=== PATIENT | male | born 1950 | race Asian ===

== ENCOUNTER 2020-07-15 16:08 | Inpatient (IN) | payer MEDICARE, OTHER ==
[~2020-07-15] VITALS: Ht 167.6 cm; Wt 62.6 kg
[2020-07-15] MEDS ORDERED: TAMS-12 PO (18:43)
[2020-07-15] MEDS ORDERED: CARB1TAB21 PO (18:43)
[2020-07-15] MEDS ORDERED: DONE5TAB34 PO (18:43)
[2020-07-15] MEDS ORDERED: MIRT30TA7 PO (18:43)
[2020-07-15] MEDS ORDERED: CLON0.5T4 PO (18:43)
[2020-07-15] MEDS ORDERED: SERT-439 PO (18:43)
[2020-07-15] MEDS ORDERED: CARB1TAB40 PO (18:43)
[2020-07-15] MEDS ORDERED: FLUD0.1T PO (18:43)
[2020-07-15] MEDS ORDERED: GABA-532 PO (18:43)
[2020-07-15 19:42] VITALS: BP 115/76
[2020-07-15] MEDS ORDERED: LORAZEPAM 0.5 MG TABLET PO PRN (20:00)
[2020-07-15] MEDS ORDERED: ACETAMINOPHEN 325 MG TABLET PO PRN (20:00)
[2020-07-15] MEDS ORDERED: BLOOD SUGAR DIAGNOSTIC 1 EACH STRIP IN ONE (20:00)
[2020-07-15] MEDS ORDERED: MAGNESIUM HYDROXIDE 30 ML UDC PO PRN (20:00)
[2020-07-15] MEDS ORDERED: MAG HYDROX/AL HYDROX/SIMETH 30 ML UDC PO PRN (20:00)
[2020-07-15 20:27] VITALS: BP 116/76
--- NOTE | 2020-07-15 21:28 | NUR ---
DR. LOPEZ CALLED UPDATED ON PATIENT STATUS AND CONDITION. SPOKE WITH PATIENT OVER THE PHONE. GIVEN CONTACT INFORMATION FOR PATIENTS DOAGHTER NO NEW ORDERS AT THIS TIME.
--- NOTE | 2020-07-15 21:39 | NUR ---
DARWIN CERVANTES AWAITING CALL BACK TO ASK TO COMPLETE MED REC. Addendum: 07/15/20 at 2257 by JESUS ULRICH RN 2229 CALEB DIAL NP CALLED BACK AND STATES HE WILL ADDRESS MED REC. INFORMED OF PATIENT REQUEST TO HAVE EVENING HOME MEDICATIONS HUMZA STATES THAT IS OK.
[2020-07-15] MEDS: QUETIAPINE FUMARATE 25 MG TABLET PO SCH (23:03)
[2020-07-15] MEDS: MIRTAZAPINE 15 MG TABLET PO SCH (23:03)
[2020-07-15] MEDS: clonazePAM 1 MG TABLET PO SCH (23:04)
[2020-07-15] MEDS: TEMAZEPAM 7.5 MG CAPSULE PO PRN (23:04)
--- NOTE | 2020-07-15 23:04 | NUR ---
STILL AWAITING MED REC TO BE PERFORMED PT REQUESTING SLEEPING PILL. SPOKE WITH PATIENT REGARDING EVENING HOME MEDS. PATIENT INFORMED STILL AWAITING MD TO PERFORM MED REC. PT REQUESTING SLEEPING PILL AND WANTS TO GO TO BED. PT REQUESTING NOT TO BE DISTURBED. INFORMED THAT HOME MEDS WILL THEN CONTINUE IN THE AM AFTER IT GETS ORDERED. PT VERBALIZED UNDERSTANDING. PT STATES, "THATS OK. I JUST AM TIRED."
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
[2020-07-16 06:42] LABS: BASOPHILS % (AUTO) 0.4 % (0.0-2.0); EOSINOPHILS % (AUTO) 0.9 % (0.0-6.0); HEMATOCRIT 41 % (39-51); HEMOGLOBIN 13.7 g/dL (13.5-17.5); LYMPHOCYTES # (AUTO) 1.3 /CMM (0.8-4.8); LYMPHOCYTES % (AUTO) 23.2 % (20.0-44.0); MEAN CORPUSCULAR HGB CONC 33 g/dl (31.0-36.0); MEAN CORPUSCULAR VOLUME 96 fL (80-96); MONOCYTES # (AUTO) 0.4 /CMM (0.1-1.30); MONOCYTES % (AUTO) 7.1 % (2.0-12.0); NEUTROPHILS # (AUTO) 3.9 /CMM (1.8-8.9); NEUTROPHILS % (AUTO) 68.4 % (43.0-81.0); PLATELET COUNT (AUTO) 110 /CMM (150-450); WHITE BLOOD COUNT (AUTO) 5.8 K/uL (4.3-11.0)
[2020-07-16 07:14] LABS: CALCIUM, SERUM 7.8 mg/dL (8.5-10.1); CREATININE 0.8 mg/dL (0.6-1.3); POTASSIUM 3.3 mmol/L (3.5-5.1)
[2020-07-16 08:00] VITALS: BP 152/91
[2020-07-16] MEDS: GABAPENTIN 300 MG CAPSULE PO SCH ×3 (09:57→18:47)
[2020-07-16] MEDS: FLUDROCORTISONE 0.1 MG TABLET PO SCH (09:58)
[2020-07-16] MEDS: CARBIDOPA/LEVODOPA 25/100 MG 1 UDTAB PO SCH ×5 (09:58→18:43)
[2020-07-16] MEDS ORDERED: POTASSIUM CHLORIDE 20 MEQ TAB.PRT.SR PO SCH (10:30)
--- NOTE | 2020-07-16 14:57 | NUR ---
Point of Contact: Patient gave verbal consent for SW to call his oldest daughter, Navdeep [phone] and the daughter he resides with, Melissa [phone]. SW called both daughters to gather collateral information and begin D/C planning. Calls went to voicemail and SW left voicemail message with call back number.
--- NOTE | 2020-07-16 14:58 | NUR ---
Initial Discharge plan: The pt. currently resides at home [[address] [facility] [address]] with his , and daughter, Melissa [phone]. Per pt. he would like to return home with family once ready for discharge. SW unable will continue attempts to reach pt.'s family. CRISPIN will continue to collaborate with IDT to ensure safe & proper discharge planning.
--- NOTE | 2020-07-16 15:40 | NUR ---
GIVEN K-DUR FOR 3.3 POTASSIUM LEVEL AND MOM,STATES NO BM X3 DAYS.
[2020-07-16 16:00] VITALS: BP 128/84
--- NOTE | 2020-07-16 18:57 | NUR ---
spoke to dtr. several times.clothes brought in by family.added to belonging list.
--- NOTE | 2020-07-16 19:07 | NUR ---
ua sent as per orders.
[2020-07-16 20:00] VITALS: BP 117/77
[2020-07-16] MEDS: TEMAZEPAM 7.5 MG CAPSULE PO PRN (21:06)
[2020-07-16] MEDS: QUETIAPINE FUMARATE 25 MG TABLET PO SCH (21:06)
[2020-07-16] MEDS: MIRTAZAPINE 15 MG TABLET PO SCH (21:07)
[2020-07-16] MEDS: clonazePAM 1 MG TABLET PO SCH (21:07)
[2020-07-16] MEDS: TAMSULOSIN 0.4 MG CAP.SR.24H PO SCH (21:19)
[2020-07-16] MEDS: CARBIDOPA/LEV CR 50/200 MG 1 UDTAB.SA PO SCH (21:19)
[2020-07-16] MEDS: DONEPEZIL 5 MG TABLET PO SCH (21:20)
[2020-07-16 23:40] LABS: BILIRUBIN,URINE NEGATIVE (NEGATIVE); COLOR,URINE YELLOW (YELLOW); LEUKOCYTE ESTERASE ,URINE NEGATIVE (NEGATIVE); NITRITE, URINE NEGATIVE (NEGATIVE); PROTEIN,URINE NEGATIVE (NEGATIVE); UGLUCOSE 100 MG/DL mg/dL (NEGATIVE); UROBILINOGEN,URINE 0.2 EU/dL (0.2)
[2020-07-16 23:46] LABS: BACTERIA,URINE None seen /HPF (None Seen); SQUAMOUS EPITHELIAL CELL,UR Few /HPF (None Seen); WBC,URINE 0-2 /HPF (0-3)
[2020-07-16 23:47] LABS: URINE AMORPHOUS URATE Many /HPF (None Seen)
[2020-07-17 07:31] LABS: CALCIUM, SERUM 8.2 mg/dL (8.5-10.1); CREATININE 0.8 mg/dL (0.6-1.3); POTASSIUM 3.2 mmol/L (3.5-5.1)
[2020-07-17 08:00] VITALS: BP 127/82
[2020-07-17] MEDS ORDERED: POTASSIUM CHLORIDE 10 MEQ TABLET.SA PO ONE (08:00)
[2020-07-17] MEDS: GABAPENTIN 300 MG CAPSULE PO SCH ×3 (08:43→17:18)
[2020-07-17] MEDS: FLUDROCORTISONE 0.1 MG TABLET PO SCH (08:44)
[2020-07-17] MEDS: CARBIDOPA/LEVODOPA 25/100 MG 1 UDTAB PO SCH ×5 (08:44→17:18)
[2020-07-17 09:40] LABS: THYROID STIMULATING HORMONE 1.028 uIU/mL (0.358-3.74)
--- NOTE | 2020-07-17 14:54 | NUR ---
Family Contact: Pts daughter, Lars ([phone]), called the SW and stated that she is overwhelmed at this time and does not know where the pt should be discharged to. SW stated that she will talk to the doctor and discuss the recommendation.
[2020-07-17 16:00] VITALS: BP 130/72
--- NOTE | 2020-07-17 17:26 | NUR ---
RN-CO: PER LUCÍA COOPER TIMING ADJUSTER, SHE IS NOT COMFORTABLE GIVING THE ORDER FOR THE USE OF "JAW BRACE" TO USE IT AT NIGHT FOR SLEEP. SINCE THERE IS A LOT OF INCIDENT OF SUICIDE IN THE PSYCH UNIT.(FOR SAFETY ISSUES).
[2020-07-17 20:15] VITALS: BP 130/73
[2020-07-17] MEDS: CARBIDOPA/LEV CR 50/200 MG 1 UDTAB.SA PO SCH (21:26)
[2020-07-17] MEDS: DONEPEZIL 5 MG TABLET PO SCH (21:26)
[2020-07-17] MEDS: TAMSULOSIN 0.4 MG CAP.SR.24H PO SCH (21:26)
[2020-07-17] MEDS: QUETIAPINE FUMARATE 25 MG TABLET PO SCH (21:26)
[2020-07-17] MEDS: MIRTAZAPINE 15 MG TABLET PO SCH (21:26)
[2020-07-17] MEDS: clonazePAM 1 MG TABLET PO SCH (22:18)
[2020-07-18 07:12] LABS: CALCIUM, SERUM 7.7 mg/dL (8.5-10.1); CREATININE 0.8 mg/dL (0.6-1.3); POTASSIUM 3.8 mmol/L (3.5-5.1)
[2020-07-18 08:00] VITALS: BP 126/73
[2020-07-18] MEDS: GABAPENTIN 300 MG CAPSULE PO SCH ×3 (08:59→16:08)
[2020-07-18] MEDS: CARBIDOPA/LEVODOPA 25/100 MG 1 UDTAB PO SCH ×5 (09:00→18:04)
[2020-07-18] MEDS: FLUDROCORTISONE 0.1 MG TABLET PO SCH (09:00)
--- NOTE | 2020-07-18 09:00 | NUR ---
RN NOTE- PT QUIET INTERACTIVE ORIENTED PERSON PLACE TIME PURPOSE, VISIBLE ON UNIT, STATED HE SLEPT POORLY, PO INTAKE GOOD, DENIES ALL
[2020-07-18 16:00] VITALS: BP 128/85
[2020-07-18 20:04] VITALS: BP 135/86
[2020-07-18] MEDS: MIRTAZAPINE 15 MG TABLET PO SCH (22:14)
[2020-07-18] MEDS: DONEPEZIL 5 MG TABLET PO SCH (22:14)
[2020-07-18] MEDS: clonazePAM 1 MG TABLET PO SCH (22:14)
[2020-07-18] MEDS: QUETIAPINE FUMARATE 25 MG TABLET PO SCH (22:14)
[2020-07-18] MEDS: CARBIDOPA/LEV CR 50/200 MG 1 UDTAB.SA PO SCH (22:15)
[2020-07-18] MEDS: TAMSULOSIN 0.4 MG CAP.SR.24H PO SCH (22:15)
--- NOTE | 2020-07-19 06:43 | NUR ---
FRIENDLY ENJOYS CONVERSATION WITH HE NURSE SPOKE ABOUT HIS PARKINSON DX. AND WHAT HIS dOCTOR HAS TOLD HIM ABOUT [facility] HIS MEDICATIONS W/O PROBLEMS SLEOT THIS NITE 8 HOURS AMBULATES TO THE BATHROOM
[2020-07-19 08:00] VITALS: BP 128/69
[2020-07-19] MEDS: CARBIDOPA/LEVODOPA 25/100 MG 1 UDTAB PO SCH ×5 (09:05→17:51)
[2020-07-19] MEDS: GABAPENTIN 300 MG CAPSULE PO SCH ×3 (09:05→17:51)
[2020-07-19] MEDS: FLUDROCORTISONE 0.1 MG TABLET PO SCH (09:05)
[2020-07-19 16:00] VITALS: BP 94/57
--- NOTE | 2020-07-19 16:29 | NUR ---
going from rm. to day rm. no acute distress. pleasant,cooperative.
[2020-07-19 20:00] VITALS: BP 122/84
[2020-07-19 20:13] VITALS: BP 122/84
[2020-07-19] MEDS: CARBIDOPA/LEV CR 50/200 MG 1 UDTAB.SA PO SCH (21:52)
[2020-07-19] MEDS: DONEPEZIL 5 MG TABLET PO SCH (21:52)
[2020-07-19] MEDS: TAMSULOSIN 0.4 MG CAP.SR.24H PO SCH (21:52)
[2020-07-19] MEDS: QUETIAPINE FUMARATE 25 MG TABLET PO SCH (21:53)
[2020-07-19] MEDS: clonazePAM 1 MG TABLET PO SCH (21:53)
[2020-07-19] MEDS: MIRTAZAPINE 15 MG TABLET PO SCH (22:03)
[2020-07-20 08:00] VITALS: BP 126/76
[2020-07-20] MEDS: GABAPENTIN 300 MG CAPSULE PO SCH ×3 (08:26→17:21)
[2020-07-20] MEDS: FLUDROCORTISONE 0.1 MG TABLET PO SCH (08:27)
[2020-07-20] MEDS: CARBIDOPA/LEVODOPA 25/100 MG 1 UDTAB PO SCH ×5 (08:27→18:03)
[2020-07-20 16:00] VITALS: BP 143/80
[2020-07-20 19:55] VITALS: BP 114/81
[2020-07-20 20:00] VITALS: BP 114/81
[2020-07-20] MEDS: CARBIDOPA/LEV CR 50/200 MG 1 UDTAB.SA PO SCH (22:08)
[2020-07-20] MEDS: QUETIAPINE FUMARATE 25 MG TABLET PO SCH (22:08)
[2020-07-20] MEDS: MIRTAZAPINE 15 MG TABLET PO SCH (22:09)
[2020-07-20] MEDS: TAMSULOSIN 0.4 MG CAP.SR.24H PO SCH (22:09)
[2020-07-20] MEDS: clonazePAM 1 MG TABLET PO SCH (22:09)
[2020-07-20] MEDS: DONEPEZIL 5 MG TABLET PO SCH (22:09)
--- NOTE | 2020-07-21 06:39 | NUR ---
RN NOTE PATIENT SLEPT WELL THROUGH OUT THE NIGHT. WILL CONTINUE TO MONITOR.
[2020-07-21 08:00] VITALS: BP 118/87
[2020-07-21] MEDS: FLUDROCORTISONE 0.1 MG TABLET PO SCH (08:21)
[2020-07-21] MEDS: GABAPENTIN 300 MG CAPSULE PO SCH ×3 (08:21→17:00)
[2020-07-21] MEDS: CARBIDOPA/LEVODOPA 25/100 MG 1 UDTAB PO SCH ×5 (08:21→17:00)
[2020-07-21 16:00] VITALS: BP 124/64
--- NOTE | 2020-07-21 16:15 | NUR ---
Individual Intervention: SW met with the pt in the hallway and the pt stated that he wanted to be discharged to his daughters home and does not want to be placed in a facility. SW stated that she would need to speak to his daughter as it is her house and pt stated that he understands.
--- NOTE | 2020-07-21 16:43 | NUR ---
Family Contact: SW called pts daughter, Lars ([phone]), and informed her that the pt informed her that he either wants to go to her home or if he wants a senior apartment. SW stated that she will assist with finding an apartment and that home can remain an option if she is accepting of the plan. Pts daughter states that she accepts.
[2020-07-21 20:00] VITALS: BP 130/78
[2020-07-21] MEDS: clonazePAM 1 MG TABLET PO SCH (21:29)
[2020-07-21] MEDS: DONEPEZIL 5 MG TABLET PO SCH (21:30)
[2020-07-21] MEDS: QUETIAPINE FUMARATE 25 MG TABLET PO SCH (21:30)
[2020-07-21] MEDS: TAMSULOSIN 0.4 MG CAP.SR.24H PO SCH (21:30)
[2020-07-21] MEDS: MIRTAZAPINE 15 MG TABLET PO SCH (21:30)
[2020-07-21] MEDS: CARBIDOPA/LEV CR 50/200 MG 1 UDTAB.SA PO SCH (21:30)
[2020-07-22 08:00] VITALS: BP 104/62
[2020-07-22] MEDS: CARBIDOPA/LEVODOPA 25/100 MG 1 UDTAB PO SCH ×6 (09:11→18:14)
[2020-07-22] MEDS: GABAPENTIN 300 MG CAPSULE PO SCH ×3 (09:11→16:39)
[2020-07-22] MEDS: FLUDROCORTISONE 0.1 MG TABLET PO SCH (09:11)
[2020-07-22 16:00] VITALS: BP 112/76
--- NOTE | 2020-07-22 18:17 | NUR ---
Patient refused cinemet. Says, "you are making me crazy." Offered medication for agitation, anxiety. Patient refused. Continues to pace floor of unit. Bennett Worthy RN
[2020-07-22 20:38] VITALS: BP 131/77
[2020-07-22] MEDS: MIRTAZAPINE 15 MG TABLET PO SCH (21:10)
[2020-07-22] MEDS: QUETIAPINE FUMARATE 25 MG TABLET PO SCH (21:10)
[2020-07-22] MEDS: CARBIDOPA/LEV CR 50/200 MG 1 UDTAB.SA PO SCH (21:10)
[2020-07-22] MEDS: TAMSULOSIN 0.4 MG CAP.SR.24H PO SCH (21:11)
[2020-07-22] MEDS: DONEPEZIL 5 MG TABLET PO SCH (21:11)
[2020-07-22] MEDS: clonazePAM 1 MG TABLET PO SCH (21:45)
[2020-07-23 08:00] VITALS: BP 140/85
[2020-07-23] MEDS: CARBIDOPA/LEVODOPA 25/100 MG 1 UDTAB PO SCH ×5 (08:06→18:22)
[2020-07-23] MEDS: GABAPENTIN 300 MG CAPSULE PO SCH ×3 (08:06→16:04)
[2020-07-23] MEDS: FLUDROCORTISONE 0.1 MG TABLET PO SCH (08:06)
--- NOTE | 2020-07-23 10:57 | NUR ---
Family Contact: Pts daughter, Lars ([phone]), called the SW and stated that she wanted an update with the pt. SW informed her that the pt was placed on a 5250 hold and that the hold does not mean that he is going to remain in the hospital for 14 days it just means that the MD needs more time to stabilize the pt. Pts daughter informed her that she does not feel that the pt is stable yet as he makes dark remarks to her. SW inquired about these remarks and she states that the pt does not see the point in continuing to live and feels that the pts in the hospital who just watch tv for hours a day should not live either. SW stated that once the MD thinks that the pt is stable she will inform her of the discharge date.
--- NOTE | 2020-07-23 15:35 | NUR ---
CRISPIN called the pt.'s daughter, Jax [phone] to requested pt.'s PCP contact information. Jax stated she will gather information from pt.'s and call SW back with PCP info. Per Jax, the pt. has been taking prescribed medication for depression his [facility] Neurologist, Marie Hernandez [phone] pt. has been diagnosed with Parkinson's Disease. Pt.'s daughter inquired regarding 5250 and hearing that took place. CRISPIN transferred call over to Yoly ROA that was in hearing to address family's questions.
[2020-07-23 16:00] VITALS: BP 140/83
[2020-07-23 19:51] VITALS: BP 123/60
[2020-07-23] MEDS: clonazePAM 1 MG TABLET PO SCH (21:18)
[2020-07-23] MEDS: QUETIAPINE FUMARATE 25 MG TABLET PO SCH (21:19)
[2020-07-23] MEDS: CARBIDOPA/LEV CR 50/200 MG 1 UDTAB.SA PO SCH (21:19)
[2020-07-23] MEDS: TAMSULOSIN 0.4 MG CAP.SR.24H PO SCH (21:19)
[2020-07-23] MEDS: DONEPEZIL 5 MG TABLET PO SCH (21:19)
[2020-07-23] MEDS: MIRTAZAPINE 15 MG TABLET PO SCH (21:24)
[2020-07-23] MEDS: TEMAZEPAM 7.5 MG CAPSULE PO PRN (21:28)
--- NOTE | 2020-07-23 21:29 | NUR ---
Pt c/o insomnia. Least restrictive measures ineffective. Restoril 7.5 mg po prn given as ordered. Will continue to monitor.
--- NOTE | 2020-07-23 22:28 | NUR ---
Restoril effective. Post 1 hr pt asleep in bed easy to arouse.
[2020-07-24 08:00] VITALS: BP 135/83
[2020-07-24 08:08] VITALS: BP 135/83
[2020-07-24] MEDS: FLUDROCORTISONE 0.1 MG TABLET PO SCH (08:17)
[2020-07-24] MEDS: GABAPENTIN 300 MG CAPSULE PO SCH ×3 (08:17→17:18)
[2020-07-24] MEDS: CARBIDOPA/LEVODOPA 25/100 MG 1 UDTAB PO SCH ×5 (08:20→17:18)
--- NOTE | 2020-07-24 12:09 | NUR ---
PCP: CRISPIN received call back from the pt.'s daughter, Jojo [phone] who provided pt.'s PCP: Les Andrews [phone].
--- NOTE | 2020-07-24 15:11 | NUR ---
Family Contact: SW called the pt.'s daughter, Jojo ([phone]), and informed her that the pt is going to be discharged the following day and she stated that she would chart picker the pt around 11am.
[2020-07-24 16:00] VITALS: BP 119/52
[2020-07-24 20:01] VITALS: BP 147/87
[2020-07-24] MEDS: QUETIAPINE FUMARATE 25 MG TABLET PO SCH (21:02)
[2020-07-24] MEDS: TAMSULOSIN 0.4 MG CAP.SR.24H PO SCH (21:02)
[2020-07-24] MEDS: DONEPEZIL 5 MG TABLET PO SCH (21:02)
[2020-07-24] MEDS: CARBIDOPA/LEV CR 50/200 MG 1 UDTAB.SA PO SCH (21:02)
[2020-07-24] MEDS: MIRTAZAPINE 15 MG TABLET PO SCH (21:02)
[2020-07-24] MEDS: clonazePAM 1 MG TABLET PO SCH (21:02)
--- NOTE | 2020-07-25 00:01 | NUR ---
Pt comfortably sleeping at this time, easy to arouse. Cont to monitor.
--- NOTE | 2020-07-25 06:26 | NUR ---
Pt still sleeping in bed, tolerated med and care. Kept clean and dry, no s/sx of acute distress, all needs anticipated and attended. Safety precautions observed. Will endorse continuity of care to oncoming am nurse, and pt has plan to discharge home today.
[2020-07-25 08:00] VITALS: BP 145/85
[2020-07-25] MEDS: FLUDROCORTISONE 0.1 MG TABLET PO SCH (08:15)
[2020-07-25] MEDS: CARBIDOPA/LEVODOPA 25/100 MG 1 UDTAB PO SCH ×2 (08:15→11:04)
[2020-07-25] MEDS: GABAPENTIN 300 MG CAPSULE PO SCH (08:15)
--- NOTE | 2020-07-25 09:20 | NUR ---
Family Contact: Pts daughter, Lars ([phone]), called the SW and stated that she would come pick and shovel man the pt around 4pm after she picks up her children from school. SW stated that is acceptable.
--- NOTE | 2020-07-25 09:21 | NUR ---
Discharge Note: Pt will be discharged to his daughters home, Navdeep ([phone]), located at [address] [place] [address]. Pts daughter, Jojo ([phone]), will pick uop the pt around 4pm. Upon discharge, the pt appears to be in a dysphoric mood and presents with a distressed affect. Pt appears to be oriented x2 (time and self). Pt appears to be groomed and appropriately dressed. Pt appears to be ambulatory with an unsteady gait. Pt denies suicidal and homicidal ideation and denied visual and auditory hallucinations. Pt will continue to follow up with pts psychiatrist, Dr. Marie Hernandez, located at [address] [facility] [id number], [place] [address]; ([phone]). Pt has an appointment on 08/06/20. Pt will also follow up with his bushler, Dr. Les Andrews, located at [address] [facility] [address], [place] [address]; ([phone]). The multidisciplinary exit care form was done, printed, signed, and given to the patient. Addendum: 07/25/20 at 0928 by CRISPIN GALVEZ Pts daughter, Jojo ([phone]), will pick uop the pt around 11am.
--- NOTE | 2020-07-25 09:32 | NUR ---
Dr. Hawthorne gave an order to D/C hold and D/C to daughter's home. Dr. Hawthorne ordered to continue routine meds no prn and to call in the prescriptions to pharmacy for 1 month supply and no refill. Pt. to follow up with the psych and medical doctors.
--- NOTE | 2020-07-25 11:30 | NUR ---
GPS/RN-NOTES DR. HUTCHISON ( PSYCHIATRIST) GAVE THE ORDER FOR DISCHARGE ALSO DR. CORDERO ( DIALYSIS PATIENT CARE TECHNICIAN) MADE AWARE WITH ORDERS.PATIENT WAS DISCHARGE TO HIS DTR RAJ'S HOME. PATIENT DID NOT VERBALIZE SI/HI,DENIES VISUAL/AUDITORY HALLUCINATIONS AT THE TIME OF DISCHARGE.. ALL RX WAS REVIEWED WITH THE PATIENT WITH UNDERSTANDING. RX WAS FAX TO [facility] RECEIVED AND CONFIRM BY AP ( PHARMACY STAFF). PATIENT LEFT THE UNIT IN STABLE CONDITION A/O X3 AMBULATORY STEADY GAIT. ALL BELONGINGS WAS RETURN BACK TO THE PATIENT HE CONFIRM THAT HE DID NOT HAVE WALKER. SAND MILL GRINDER BY KAREN ANTHONY VIA PRIVATE CAR ALL RX WAS ENDORSED TO RAJ.MASK WAS PROVIDED TO THE PATIENT .
== END 2020-07-25 11:30 | disposition home or self-care (01) | DRG 885 ==
LOC: EDSEX → GPS 18:09
PROVIDERS: ADMIT Psychiatry & Neurology Psychiatry; ATTEND Family Medicine
DX: F32.3 Major depressive disorder, single episode, severe with psychotic features (principal); F29 Unspecified psychosis not due to a substance or known physiological condition; F41.9 Anxiety disorder, unspecified; T50.901D Poisoning by unspecified drugs, medicaments and biological substances, accidental (unintentional), subsequent encounter; G20 Parkinson's disease; I10 Essential (primary) hypertension; N40.0 Benign prostatic hyperplasia without lower urinary tract symptoms; Z91.5 Personal history of self-harm; Z73.6 Limitation of activities due to disability; E87.6 Hypokalemia
CPT/HCPCS: 36415; 80048-TC; 80061-TC; 81001; 82962-TC; 84443-TC; 85025-TC; 87081-TC; 97116-TC; 97530-TC

== ENCOUNTER 2021-10-16 23:19 | Inpatient (IN) | payer MEDICARE, OTHER ==
[~2021-10-16] VITALS: Ht 167.6 cm; Wt 62.6 kg
[~2021-10-16 23:19] MED LIST: CARB1TAB21 PO; CARB1TAB40 PO; DONE5TAB34 PO; FLUD0.1T PO; GABA-532 PO; TAMS-12 PO
[2021-10-17] MEDS ORDERED: MIRT-91 PO (04:25)
[2021-10-17] MEDS ORDERED: VENL37.591 PO (04:25)
[2021-10-17] MEDS ORDERED: ACETAMINOPHEN 325 MG TABLET PO PRN (04:30)
[2021-10-17] MEDS ORDERED: TEMAZEPAM 7.5 MG CAPSULE PO PRN (04:30)
[2021-10-17] MEDS ORDERED: MAG HYDROX/AL HYDROX/SIMETH 30 ML UDC PO PRN (04:30)
[2021-10-17] MEDS ORDERED: LORAZEPAM 0.5 MG TABLET PO PRN (04:30)
--- NOTE | 2021-10-17 04:43 | NUR ---
GPS RN NOTE, PATIENT NEEDS A MEDICATION RECONCILIATION PAGED [facility] AND INFORMED REE LARSEN DNP OF MY FINDINGS. REE LARSEN DNP STATED, " THANK YOU, I WILL RECONCILE THIS PATIENT HOME MEDICATIONS SOON POSSIBLE ". WILL CONTINUE TO MONITOR THIS PATIENT WITH THE HELP OF STAFF.
[2021-10-17] MEDS ORDERED: BLOOD SUGAR DIAGNOSTIC 1 EACH STRIP IN ONE (05:00)
--- NOTE | 2021-10-17 05:04 | NUR ---
ADMISSION NOTES: ADMITTED THIS 70Y/O MALE PATIENT ADMIT FROM [facility] /INTALLY FROM HOME PT. ADMITTED TO GPS ON 5150 DTS HOLD , PER HOLD, PT. OD ON KLONOPIN AND PER PT. DAUGHTER HE TOOK AN UNKNOWN QUANTITY OF KLONOPIN AND PT. STATES HE TOO 6-7 PILLS TO HELP WITH SLEEP AND ANXIETY ,UPON FACE TO FACE ASSESSMENT PATIENT IS A&O X 3 , DEPRESSED, FLAT /BLUNTED AFFECT , CALM ,COOPERTIVE AT THIS TIME ,DENIES SI /HI AT THIS TIME, PT. IS POOR HISTORIAN, POOR INSIGHT ,POOR JUDGEMENT, BOTH MD AWARE AND NOTIFIED OF THE ADMISSION, BELONGINGS CONTRABAND WERE DONE ,PT. RIGHTS DISCUSS BY CENTRIFUGAL WAX MOLDER , PROVIDE THE PT. WITH HANDBOOK, AND MEDICATIONS GUIDE, ENVIRONMENTAL SAFETY CHECK DONE, ENCOURAGED PT. VERBALIZED ANY FEELING CONCERN TO STAFF, ORIENT TO UNIT POLICY, NO ACUTE DISTRESS NOTED,VITAL SIGNS WNL ,DENIES ANY PAIN AT THIS TIME,WILL CONTINUE TO MONITOR FOR Q15 SAFETY AND BEHAVIOR.
[2021-10-17 05:47] VITALS: BP 132/74
--- NOTE | 2021-10-17 06:50 | NUR ---
RN NOTES: PLACED CALL PT. DAUGHTER FRANK AT [phone] AND LEFT MASSAGES REGARDING PT. ADMIT TO GPS.
--- NOTE | 2021-10-17 07:21 | NUR ---
RN NOTES: COLLECT MRSA NARES AND SEND TO LAB.
[2021-10-17 08:00] VITALS: BP 119/65
[2021-10-17] MEDS: FLUDROCORTISONE 0.1 MG TABLET PO SCH (08:18)
[2021-10-17] MEDS: CARBIDOPA/LEVODOPA 25/100 MG 1 UDTAB PO SCH ×5 (08:18→18:00)
[2021-10-17] MEDS: VENLAFAXINE XR 75 MG CAP.SR.24H PO SCH (11:19)
--- NOTE | 2021-10-17 14:34 | NUR ---
STARTED ON EFFEXOR TODAY.
[2021-10-17 16:00] VITALS: BP 108/87
--- NOTE | 2021-10-17 18:16 | NUR ---
REQUESTED SHOWER EARLIER,BUT C/O DIZZINESS,SO SHOWER DELAYED.
[2021-10-17 20:07] VITALS: BP 121/76
[2021-10-17] MEDS: TAMSULOSIN 0.4 MG CAP.SR.24H PO SCH (21:17)
[2021-10-17] MEDS: CARBIDOPA/LEV CR 50/200 MG 1 UDTAB.SA PO SCH (21:17)
[2021-10-17] MEDS ORDERED: DONEPEZIL 5 MG TABLET PO SCH (22:00)
[2021-10-17] MEDS: clonazePAM 1 MG TABLET PO SCH (22:01)
--- NOTE | 2021-10-18 05:44 | NUR ---
RN NOTES: PATIENT IS CURRENTLY SLEEPING. NO S/S OF DISTRESS. NO CHANGE OF CONDITION NOTED, NO BEHAVIOR PROBLEMS NOTED. ALL NEEDS ATTENDED AND ANTICIPATED. WILL CONTINUE TO MONITOR Q15 FOR MOOD, SAFETY AND BEHAVIOR.
[2021-10-18 07:31] LABS: BASOPHILS % (AUTO) 0.4 % (0.0-2.0); EOSINOPHILS % (AUTO) 1.1 % (0.0-6.0); HEMATOCRIT 38 % (39-51); HEMOGLOBIN 12.9 g/dL (13.5-17.5); LYMPHOCYTES # (AUTO) 1.8 K/uL (0.8-4.8); LYMPHOCYTES % (AUTO) 42.4 % (20.0-44.0); MEAN CORPUSCULAR HGB CONC 34 g/dl (31.0-36.0); MEAN CORPUSCULAR VOLUME 96 fL (80-96); MONOCYTES # (AUTO) 0.3 K/uL (0.1-1.30); MONOCYTES % (AUTO) 7.5 % (2.0-12.0); NEUTROPHILS % (AUTO) 48.6 % (43.0-81.0); PLATELET COUNT (AUTO) 113 K/uL (150-450); RED BLOOD CELL COUNT(AUTO) 4.01 MIL/uL (4.5-6.0); WHITE BLOOD COUNT (AUTO) 4.2 K/uL (4.3-11.0)
[2021-10-18 07:48] LABS: CHOLESTEROL 208 mg/dL (<200); HDL CHOLESTEROL 80 mg/dL (40-60); LDL 109 mg/dL (0-99); THYROID STIMULATING HORMONE 1.271 uIU/mL (0.358-3.74); TRIGLYCERIDES 68 mg/dL (30-150)
[2021-10-18 08:00] VITALS: BP 117/73
[2021-10-18] MEDS: VENLAFAXINE XR 75 MG CAP.SR.24H PO SCH (08:20)
[2021-10-18] MEDS: FLUDROCORTISONE 0.1 MG TABLET PO SCH (08:21)
[2021-10-18] MEDS: CARBIDOPA/LEVODOPA 25/100 MG 1 UDTAB PO SCH ×5 (08:21→18:55)
[2021-10-18 08:30] LABS: ALANINE AMINOTRANSFERASE < 6 U/L (12-78); ALBUMIN 2.9 g/dL (3.4-5.0); ALKALINE PHOSPHATASE 63 U/L (46-116); ASPARTATE AMINOTRANSFERASE 12 U/L (15-37); BILIRUBIN,DIRECT 0.1 mg/dL (0.0-0.2); BILIRUBIN,TOTAL 0.6 mg/dL (0.2-1.0); CARBON DIOXIDE 31 mmol/L (21-32); CHLORIDE 105 mmol/L (98-107); CREATININE 0.8 mg/dL (0.6-1.3); GLUCOSE 101 mg/dL (74-106); MAGNESIUM 2.1 mg/dL (1.8-2.4); PHOSPHORUS 3.7 mg/dL (2.5-4.9); POTASSIUM 3.4 mmol/L (3.5-5.1); SODIUM SERUM 140 mmol/L (136-145); TOTAL PROTEIN, SERUM 5.6 g/dL (6.4-8.2); UREA NITROGEN, BLOOD 12 mg/dL (7-18)
[2021-10-18] MEDS ORDERED: POTASSIUM CHLORIDE 20 MEQ TAB.PRT.SR PO ONE (10:30)
[2021-10-18 16:00] VITALS: BP 130/81
[2021-10-18 20:31] VITALS: BP 132/84
[2021-10-18] MEDS: TRAZODONE 50 MG TABLET PO SCH (21:22)
[2021-10-18] MEDS: CARBIDOPA/LEV CR 50/200 MG 1 UDTAB.SA PO SCH (21:22)
[2021-10-18] MEDS: clonazePAM 1 MG TABLET PO SCH (21:23)
[2021-10-18] MEDS: TAMSULOSIN 0.4 MG CAP.SR.24H PO SCH (21:25)
[2021-10-19 08:00] VITALS: BP 109/62
[2021-10-19] MEDS: CARBIDOPA/LEVODOPA 25/100 MG 1 UDTAB PO SCH ×5 (08:33→17:41)
[2021-10-19] MEDS: DONEPEZIL 5 MG TABLET PO SCH (08:33)
[2021-10-19] MEDS: VENLAFAXINE XR 75 MG CAP.SR.24H PO SCH (08:34)
[2021-10-19] MEDS: FLUDROCORTISONE 0.1 MG TABLET PO SCH (08:35)
--- NOTE | 2021-10-19 09:01 | NUR ---
CRISPIN Initial Discharge Plan: Pt currently resides at [address] [address] ([phone]). Pt would want to return back home upon discharge. CRISPIN will work with the MD, treatment team, and family to help coordinate appropriate discharge.
--- NOTE | 2021-10-19 09:02 | NUR ---
CRISPIN Clinical Note: Pt placed on a 5150 hold for danger to self and others. Pt overdosed on Klonopin at home due to wanting to end his life. Pt currently resides at [address] [place] [address] ([phone]). Pt would want to return back home upon discharge.
--- NOTE | 2021-10-19 09:53 | NUR ---
CRISPIN Family Contact: CRISPIN spoke with patient's daughter Melissa ([phone]) and discussed pt's discharge/treatment plan. Daughter is unsure if she wants pt back home and stated she is unable to take care of pt. SW gave daughter options: nursing facility or home health or out of pocket pay caregiver resources. She stated she will discuss with pt and what the doctor recommends.
--- NOTE | 2021-10-19 09:55 | NUR ---
Social Work Note/Substance Abuse Intervention: Patient was provided with a brief substance abuse intervention and referred to [facility] ([phone]), [facility] ([phone]), and [facility] ([phone]) for overdosing on medication.
[2021-10-19 16:00] VITALS: BP 110/55
[2021-10-19 20:18] VITALS: BP 103/70
[2021-10-19] MEDS: TAMSULOSIN 0.4 MG CAP.SR.24H PO SCH (21:19)
[2021-10-19] MEDS: clonazePAM 1 MG TABLET PO SCH (21:19)
[2021-10-19] MEDS: CARBIDOPA/LEV CR 50/200 MG 1 UDTAB.SA PO SCH (21:19)
[2021-10-19] MEDS: TRAZODONE 50 MG TABLET PO SCH (21:19)
[2021-10-19] MEDS: diphenhydrAMINE HCL 25 MG CAPSULE PO PRN (21:25)
--- NOTE | 2021-10-19 21:27 | NUR ---
Pt c/o insomnia. Least restrictive measures ineffective. Benadryl 50 mg po prn given as ordered. Will continue to monitor.
[2021-10-20 08:00] VITALS: BP 115/73
[2021-10-20] MEDS: DONEPEZIL 5 MG TABLET PO SCH (08:51)
[2021-10-20] MEDS: FLUDROCORTISONE 0.1 MG TABLET PO SCH (08:51)
[2021-10-20] MEDS: VENLAFAXINE XR 75 MG CAP.SR.24H PO SCH (08:51)
[2021-10-20] MEDS: CARBIDOPA/LEVODOPA 25/100 MG 1 UDTAB PO SCH ×5 (08:51→17:46)
--- NOTE | 2021-10-20 10:45 | NUR ---
CRISPIN Note: CRISPIN used translation [employer] Ipad #[id number]. SW explained to pt that he cannot return back home at this time due to daughter Melissa not being able to care for him. SW gave him options such as a nursing facility and he was understanding.
[2021-10-20 16:00] VITALS: BP 116/73
--- NOTE | 2021-10-20 19:15 | NUR ---
GPS RN NOTES RECEIVED PATIENT IN BED AWAKE, ALERT AND ORIENTED X3. NO S/SX OF ACUTE DISTRESS NOTED. PATIENT REMAINS DEPRESSED, WITHDRAWN, GUARDED. DENIED SI/HI/AVH AT THIS TIME. VERBALIZATION OF FEELINGS ENCOURAGED. ENCOURAGED PT TO ATTEND IN GROUP ACTIVITIES. SAFETY PRECAUTIONS MAINTAINED. WILL CONTINUE TO MONITOR Q15MIN ROUNDS FOR SAFETY AND BEHAVIOR.
[2021-10-20 19:51] VITALS: BP 117/71
[2021-10-20] MEDS: TRAZODONE 50 MG TABLET PO SCH (21:14)
[2021-10-20] MEDS: clonazePAM 0.5 MG TABLET PO SCH (21:14)
[2021-10-20] MEDS: CARBIDOPA/LEV CR 50/200 MG 1 UDTAB.SA PO SCH (21:14)
[2021-10-20] MEDS: TAMSULOSIN 0.4 MG CAP.SR.24H PO SCH (21:15)
[2021-10-20] MEDS: hydrOXYzine PAMOATE 25 MG CAPSULE PO PRN (21:56)
[2021-10-21 08:00] VITALS: BP 107/74
[2021-10-21] MEDS: CARBIDOPA/LEVODOPA 25/100 MG 1 UDTAB PO SCH ×5 (08:46→17:54)
[2021-10-21] MEDS: VENLAFAXINE XR 75 MG CAP.SR.24H PO SCH (08:47)
[2021-10-21] MEDS: FLUDROCORTISONE 0.1 MG TABLET PO SCH (08:47)
[2021-10-21] MEDS: DONEPEZIL 5 MG TABLET PO SCH (09:09)
--- NOTE | 2021-10-21 09:10 | NUR ---
CRISPIN Family Contact: CRISPIN spoke with patient's Daughter Melissa ([phone]) and discussed the next step. She stated that they will be moving next week to a different house and the house is not ready for pt to come back. She stated they are trying to figure out where their mother will be moving before pt returns home. She reported that she would want a temporarily placement SNF. CRISPIN also discussed the main point of contact will be her (Melissa) because her other sister kept calling as well.
--- NOTE | 2021-10-21 09:12 | NUR ---
Court Notification: CRISPIN spoke with pt's daughter Melissa ([phone]) and notified that it will be his 9995 hearing today.
--- NOTE | 2021-10-21 13:16 | NUR ---
Court Hearing: Patient's court hearing was today and it was upheld for GD.
[2021-10-21 16:00] VITALS: BP 100/65
--- NOTE | 2021-10-21 19:15 | NUR ---
GPS RN NOTES RECEIVED PATIENT IN BED AWAKE, ALERT AND ORIENTED X3. NO S/SX OF ACUTE DISTRESS NOTED. PATIENT REMAINS DEPRESSED, WITHDRAWN, GUARDED. DENIED SI/HI/AVH AT THIS TIME. VERBALIZATION OF FEELINGS ENCOURAGED. ENCOURAGED PATIENT TO ATTEND IN GROUP ACTIVITIES. SAFETY PRECAUTIONS MAINTAINED. WILL CONTINUE TO MONITOR Q15MIN ROUNDS FOR SAFETY AND BEHAVIOR.
[2021-10-21 20:09] VITALS: BP 133/66
[2021-10-21] MEDS: clonazePAM 0.5 MG TABLET PO SCH (21:08)
[2021-10-21] MEDS: TRAZODONE 50 MG TABLET PO SCH (21:08)
[2021-10-21] MEDS: CARBIDOPA/LEV CR 50/200 MG 1 UDTAB.SA PO SCH (21:08)
[2021-10-21] MEDS: TAMSULOSIN 0.4 MG CAP.SR.24H PO SCH (21:08)
[2021-10-21] MEDS: hydrOXYzine PAMOATE 25 MG CAPSULE PO PRN (22:18)
[2021-10-22] MEDS: diphenhydrAMINE HCL 25 MG CAPSULE PO PRN (00:51)
[2021-10-22 08:00] VITALS: BP 123/78
[2021-10-22] MEDS: CARBIDOPA/LEVODOPA 25/100 MG 1 UDTAB PO SCH ×5 (08:30→17:07)
[2021-10-22] MEDS: VENLAFAXINE XR 75 MG CAP.SR.24H PO SCH (08:30)
[2021-10-22] MEDS: DONEPEZIL 5 MG TABLET PO SCH (08:30)
[2021-10-22] MEDS: FLUDROCORTISONE 0.1 MG TABLET PO SCH (08:30)
--- NOTE | 2021-10-22 10:10 | NUR ---
RN-CO: PATIENT IS VISIBLE IN THE UNIT, DEPRESSED AND ANXIOUS . HE STATED AT TIMES HE FEELS HOPLESS BUT DENIED SI. I ENCOURAGED HIM TO PARTICIPATE IN GROUP ACTIVITIES AND VENTILATE FEELINGS.
[2021-10-22 16:00] VITALS: BP 103/65
[2021-10-22 20:00] VITALS: BP 136/75
--- NOTE | 2021-10-22 20:30 | NUR ---
RN NOTES: PATIENT IN BED AWAKE, NO S/SX OF ACUTE DISTRESS NOTED. PATIENT REMAINS DEPRESSED, WITHDRAWN, GUARDED. DENIED SI/HI/AVH AT THIS TIME. VERBALIZATION OF FEELINGS ENCOURAGED. ENCOURAGED PT TO ATTEND 1N GROUP ACTIVITIES. SAFETY PRECAUTIONS MAINTAINED. WILL CONTINUE TO MONITOR Q15MIN ROUNDS FOR SAFETY AND BEHAVIOR.
[2021-10-22] MEDS: TAMSULOSIN 0.4 MG CAP.SR.24H PO SCH (21:22)
[2021-10-22] MEDS: CARBIDOPA/LEV CR 50/200 MG 1 UDTAB.SA PO SCH (21:22)
[2021-10-22] MEDS ORDERED: TRAZODONE 50 MG TABLET PO SCH (22:00)
[2021-10-22] MEDS: hydrOXYzine PAMOATE 25 MG CAPSULE PO PRN (23:05)
--- NOTE | 2021-10-22 23:09 | NUR ---
RN NOTES :ANXIETY PT. C/O FEELING ANXIETY, PRN VISTARIL 25 MG PO GIVEN , WILL CONTINUE TO MONITOR.
[2021-10-23] MEDS: diphenhydrAMINE HCL 25 MG CAPSULE PO PRN ×2 (02:40→23:10)
--- NOTE | 2021-10-23 02:40 | NUR ---
GPS RN NOTE, PATIENT HAS A COMPLAINT OF NOT BEING ABLE TO SLEEP AND IS REQUESTING BENADRYL AT THIS TIME. PATIENT VITAL SIGNS ARE STABLE. GAVE BENADRYL 50MG PO HS PRN ORDERED. WILL REASSESS FOR INSOMNIA AND I WILL CONTINUE TO MONITOR THIS PATIENT WITH THE HELP OF STAFF.
[2021-10-23 08:00] VITALS: BP 131/87
[2021-10-23] MEDS: DONEPEZIL 5 MG TABLET PO SCH (08:38)
[2021-10-23] MEDS: VENLAFAXINE XR 75 MG CAP.SR.24H PO SCH (08:38)
[2021-10-23] MEDS: CARBIDOPA/LEVODOPA 25/100 MG 1 UDTAB PO SCH ×5 (08:38→17:16)
[2021-10-23] MEDS: FLUDROCORTISONE 0.1 MG TABLET PO SCH (08:38)
--- NOTE | 2021-10-23 09:48 | NUR ---
CRISPIN Family Contact: CRISPIN contacted patient's Daughter Melissa ([phone]) and left a detailed voicemail of the facilities she had requested. CRISPIN gave her two options [facility] and [facility] and requested to do research before this insurance writer sends out the clinicals to the facilities.
--- NOTE | 2021-10-23 11:06 | NUR ---
CRISPIN Family Contact: SW contacted patient's Daughter Melissa ([phone]) who stated that she is interested in [facility] and for this insurance underwriter sales to send referrals. She stated that she will try to look into a Latvian speaking facility but wants rand as a back up.
--- NOTE | 2021-10-23 11:07 | NUR ---
SNF Referral: CRISPIN sent clinicals to Dot vernon from [facility] ([phone]) for placement. CRISPIN sent H & P, progress notes, and medication list.
--- NOTE | 2021-10-23 11:48 | NUR ---
SW Note: Pt's daughter found a facility that she wants this play writer to send to [facility] ([phone]) (F:[phone]) attn: [facility].
--- NOTE | 2021-10-23 11:49 | NUR ---
SNF Referral: Per pt's daughter request, SW sent clinicals to [facility] ([phone]) (F:[phone]) attn: Pastora, for placement option. CRISPIN sent H & P, progress notes, and medication list.
--- NOTE | 2021-10-23 12:44 | NUR ---
SNF Contact: SW received a call from [facility] ([phone]) (F:[phone]) from admission [facility] who stated they cannot accept pt due to not being able to provide appropriate care.
--- NOTE | 2021-10-23 12:53 | NUR ---
CRISPIN Family Contact: CRISPIN contacted patient's Daughter Melissa ([phone]) and notified that [place] [facility] denied. CRISPIN left a voicemail.
[2021-10-23 15:51] VITALS: BP 125/63
[2021-10-23] MEDS: MAGNESIUM HYDROXIDE 30 ML UDC PO PRN (18:13)
--- NOTE | 2021-10-23 18:13 | NUR ---
RN NOTE MOM 30 ML GIVEN FOR C/O CONSTIPATION. WILL CONTINUE TO MONITOR FOR EFFECTIVENESS. FLUIDS ENCOURAGED.
--- NOTE | 2021-10-23 19:22 | NUR ---
RN NOTES RECEIVED PATIENT IN BED AAOX3 NO SIGN SOB/DISTRESS NOTED. PATIENT REMAINS DEPRESSED, WITHDRAWN, GUARDED. DENIED SI/HI/AVH AT THIS TIME.SAFETY PRECAUTIONS MAINTAINED. WILL CONTINUE TO MONITOR Q15MIN ROUNDS FOR SAFETY AND BEHAVIOR.
[2021-10-23 20:00] VITALS: BP 111/78
[2021-10-23] MEDS: CARBIDOPA/LEV CR 50/200 MG 1 UDTAB.SA PO SCH (21:03)
[2021-10-23] MEDS: TAMSULOSIN 0.4 MG CAP.SR.24H PO SCH (21:03)
[2021-10-23] MEDS: TRAZODONE 50 MG TABLET PO SCH (21:26)
[2021-10-24 08:00] VITALS: BP 118/78
[2021-10-24] MEDS: DONEPEZIL 5 MG TABLET PO SCH (08:29)
[2021-10-24] MEDS: FLUDROCORTISONE 0.1 MG TABLET PO SCH (08:29)
[2021-10-24] MEDS: CARBIDOPA/LEVODOPA 25/100 MG 1 UDTAB PO SCH ×5 (08:29→17:15)
[2021-10-24] MEDS: VENLAFAXINE XR 75 MG CAP.SR.24H PO SCH (08:29)
[2021-10-24] MEDS: MAGNESIUM HYDROXIDE 30 ML UDC PO PRN (11:09)
[2021-10-24 15:54] VITALS: BP 118/71
[2021-10-24] MEDS: DOCUSATE SODIUM 100 MG CAPSULE PO SCH (17:15)
--- NOTE | 2021-10-24 18:48 | NUR ---
RN NOTE Patient resting in bed, awake, alert and verbally responsive. No signs of acute distress noted. Stable on room air, breathing even and unlabored. Denies any pain at this time. Patient med compliant. Ambulates ad sidney. Safety measure provided, will endorse to next shift for continuity of care.
--- NOTE | 2021-10-24 19:19 | NUR ---
GPS RN NOTE, RECEIVED PATIENT AWAKE AND IN BED, NO S/S OR COMPLAINTS OF PAIN AT THIS TIME. PATIENT IS DISPLAYING NO S/S OF APPARENT DISTRESS AT THIS TIME. PATIENT BREATHING IS UNLABORED WITH EQUAL RISE AND FALL OF THE CHEST. PATIENT IS ALERT AND ORIENTED X 3 ON ROOM AIR WITH A SPO2 95%. PATIENT IS COMPLIANT WITH MEDICATIONS, ANXIOUS, DEPRESSED, ISOLATIVE, DISORGANIZED, AND COOPERATIVE. PATIENT DENIES SUICIDAL AND HOMICIDAL IDEATIONS AT THIS TIME. PATIENT ASSISTED WITH TURNING AND REPOSITIONING Q2HR AND PRN FOR COMFORT AND CIRCULATION. PATIENT HAS NO NEEDS AT THIS TIME. PATIENT EDUCATED ON THE USE OF THE CALL HYLTON. PATIENT BED SIDE RAILS UP X 2 FOR SAFETY. PATIENT BED IS LOCKED, LOW, WITH BED ALARM ON. WILL CONTINUE TO MONITOR THIS PATIENT Q15 MINUTES WITH THE HELP OF STAFF TO MAINTAIN SAFETY.
[2021-10-24 20:00] VITALS: BP 128/69
[2021-10-24] MEDS: CARBIDOPA/LEV CR 50/200 MG 1 UDTAB.SA PO SCH (21:08)
[2021-10-24] MEDS: TRAZODONE 50 MG TABLET PO SCH (21:08)
[2021-10-24] MEDS: TAMSULOSIN 0.4 MG CAP.SR.24H PO SCH (21:08)
[2021-10-24] MEDS: diphenhydrAMINE HCL 25 MG CAPSULE PO PRN (22:31)
[2021-10-25 08:00] VITALS: BP 123/69
[2021-10-25] MEDS: DOCUSATE SODIUM 100 MG CAPSULE PO SCH ×2 (08:30→17:00)
[2021-10-25] MEDS: VENLAFAXINE XR 75 MG CAP.SR.24H PO SCH ×2 (08:30→14:49)
[2021-10-25] MEDS: FLUDROCORTISONE 0.1 MG TABLET PO SCH (08:30)
[2021-10-25] MEDS: DONEPEZIL 5 MG TABLET PO SCH (08:30)
[2021-10-25] MEDS: CARBIDOPA/LEVODOPA 25/100 MG 1 UDTAB PO SCH ×5 (08:30→17:24)
[2021-10-25 16:00] VITALS: BP 117/69
--- NOTE | 2021-10-25 19:02 | NUR ---
GPS RN NOTE PATIENT AWAKE AND IN BED, NO S/S OR COMPLAINTS OF PAIN AT THIS TIME. PATIENT IS DISPLAYING NO S/S OF APPARENT DISTRESS AT THIS TIME. PATIENT'S BREATHING IS UNLABORED WITH EQUAL RISE AND FALL OF THE CHEST. PATIENT IS ALERT AND ORIENTED X 3-4, ON ROOM AIR WITH A SPO2 OF 96%. PATIENT IS COMPLIANT WITH MEDICATION, DISORGANIZED, RESPONDING TO INTERNAL STIMULI, ANXIOUS AND COOPERATIVE. PATIENT ABLE TO MAKE NEEDS KNOWN. PATIENT DENIES SUICIDE IDEATIONS AND HOMICIDAL IDEATIONS AT THIS TIME. PATIENT ASSISTED WITH TURNING AND REPOSITIONING Q2 HR AND PRN FOR COMFORT AND CIRCULATION. PATIENT HAS NO NEEDS AT THIS TIME. PATIENT EDUCATED ON THE USE OF THE CALL HYLTON. PATIENT BED SIDE RAILS UP X2 FOR SAFETY, BED IN LOCKED AND LOW. ENDORSED TO NEXT SHIFT FOR CONTINUITY OF CARE.
--- NOTE | 2021-10-25 19:56 | NUR ---
GPS Nurses Opening Notes: PATIENT AWAKE AND IN BED, NO S/S OR COMPLAINTS OF PAIN AT THIS TIME. PATIENT IS DISPLAYING NO S/S OF APPARENT DISTRESS AT THIS TIME. PATIENT'S BREATHING IS UNLABORED WITH EQUAL RISE AND FALL OF THE CHEST. PATIENT IS ALERT AND ORIENTED X 3-4, ON ROOM AIR WITH A SPO2 OF 97%. PATIENT IS COMPLIANT WITH MEDICATION, DISORGANIZED, RESPONDING TO INTERNAL STIMULI, ANXIOUS AND COOPERATIVE. PATIENT ABLE TO MAKE NEEDS KNOWN. PATIENT DENIES SUICIDE IDEATIONS AND HOMICIDAL IDEATIONS AT THIS TIME. PATIENT ASSISTED WITH TURNING AND REPOSITIONING Q2 HR AND PRN FOR COMFORT AND CIRCULATION. PATIENT HAS NO NEEDS AT THIS TIME. PATIENT EDUCATED ON THE USE OF THE CALL HYLTON. PATIENT BED SIDE RAILS UP X2 FOR SAFETY, BED IN LOCKED AND LOW. ENDORSED TO NEXT SHIFT FOR CONTINUITY OF CARE.
[2021-10-25 20:10] VITALS: BP 123/75
[2021-10-25] MEDS: TRAZODONE 50 MG TABLET PO SCH (21:24)
[2021-10-25] MEDS: TAMSULOSIN 0.4 MG CAP.SR.24H PO SCH (21:25)
[2021-10-25] MEDS: CARBIDOPA/LEV CR 50/200 MG 1 UDTAB.SA PO SCH (21:25)
[2021-10-25] MEDS: diphenhydrAMINE HCL 25 MG CAPSULE PO PRN (21:42)
--- NOTE | 2021-10-26 05:29 | NUR ---
GPS Nurses Notes: Pt still in bed sleeping, no s/s of pain and discomfort, respiration is unlabored, no SOB noted, all needs attended.
[2021-10-26 08:00] VITALS: BP 103/70
[2021-10-26] MEDS: DOCUSATE SODIUM 100 MG CAPSULE PO SCH ×2 (08:43→17:00)
[2021-10-26] MEDS: DONEPEZIL 5 MG TABLET PO SCH (08:43)
[2021-10-26] MEDS: FLUDROCORTISONE 0.1 MG TABLET PO SCH (08:43)
[2021-10-26] MEDS: VENLAFAXINE XR 75 MG CAP.SR.24H PO SCH (08:43)
[2021-10-26] MEDS: CARBIDOPA/LEVODOPA 25/100 MG 1 UDTAB PO SCH ×5 (08:43→17:47)
--- NOTE | 2021-10-26 13:16 | NUR ---
CRISPIN Family Contact: SW contacted patient's Daughter Melissa ([phone]) and stated she is agreeable of [facility].
[2021-10-26 16:00] VITALS: BP 113/60
[2021-10-26] MEDS: hydrOXYzine PAMOATE 25 MG CAPSULE PO PRN (20:10)
--- NOTE | 2021-10-26 20:12 | NUR ---
RN NOTES: ANXIETY PT. C/O FEELING ANXIETY, PRN VISTARIL 25 MG PO GIVEN PER PT. REQUEST, WILL CONTINUE TO MONITOR. Addendum: 10/26/21 at 2028 by OUMOU DURAN RN WRONG DOCUMENTION
[2021-10-26 20:28] VITALS: BP 150/80
--- NOTE | 2021-10-26 20:31 | NUR ---
RN NOTES: ANXIETY PT. C/O FEELING ANXIETY, PRN VISTARIL 25 MG PO GIVEN PER PT. REQUEST, WILL CONTINUE TO MONITOR.
[2021-10-26] MEDS: CARBIDOPA/LEV CR 50/200 MG 1 UDTAB.SA PO SCH (21:20)
[2021-10-26] MEDS: TAMSULOSIN 0.4 MG CAP.SR.24H PO SCH (21:21)
[2021-10-26] MEDS: QUETIAPINE FUMARATE 25 MG TABLET PO SCH (21:21)
--- NOTE | 2021-10-27 05:22 | NUR ---
RN NOTES: PATIENT IN BED AWAKE, NO S/SX OF ACUTE DISTRESS NOTED. PATIENT ANXIOUS, EASILY AGITATED,PARANOID, DEPRESSED, WITHDRAWN, GUARDED. DENIED SI/HI/AVH AT THIS TIME. VERBALIZATION OF FEELINGS ENCOURAGED. ENCOURAGED PT TO ATTEND IN GROUP ACTIVITIES. SAFETY PRECAUTIONS MAINTAINED. WILL CONTINUE TO MONITOR.
[2021-10-27 08:00] VITALS: BP 144/79
[2021-10-27] MEDS: DOCUSATE SODIUM 100 MG CAPSULE PO SCH ×2 (09:12→16:47)
[2021-10-27] MEDS: VENLAFAXINE XR 75 MG CAP.SR.24H PO SCH (09:12)
[2021-10-27] MEDS: FLUDROCORTISONE 0.1 MG TABLET PO SCH (09:12)
[2021-10-27] MEDS: DONEPEZIL 5 MG TABLET PO SCH (09:12)
[2021-10-27] MEDS: CARBIDOPA/LEVODOPA 25/100 MG 1 UDTAB PO SCH ×5 (09:12→17:21)
--- NOTE | 2021-10-27 09:56 | NUR ---
SNF Contact: SW spoke with Dot vernon from [facility] ([phone]) who stated pt is accepted.
--- NOTE | 2021-10-27 09:57 | NUR ---
SW Note: SW used [employer] ripsaw operator #[id number] and explained to pt that he is accepted at [facility] and will be transferred there when he is ready. SW explained that daughter Melissa is currently moving to a different house and needs time. Pt was understanding.
--- NOTE | 2021-10-27 09:59 | NUR ---
SW Family Contact: SW contacted patient's Daughter Melissa ([phone]) and left a detailed voicemail that the staff explained to pt that he will be transitioning to [place] [place] and explained the moving situation.
[2021-10-27 16:00] VITALS: BP 109/67
[2021-10-27] MEDS: hydrOXYzine PAMOATE 25 MG CAPSULE PO PRN (19:43)
[2021-10-27 19:44] VITALS: BP 147/82
--- NOTE | 2021-10-27 19:44 | NUR ---
RN NOTES: ANXIETY PT. C/O FEELING ANXIETY, PRN VISTARIL 25 MG PO GIVEN PER PT. REQUEST, WILL CONTINUE TO MONITOR.
--- NOTE | 2021-10-27 20:08 | NUR ---
RN NOTES: PATIENT AWAKE, ALERT . NO S/SX OF ACUTE DISTRESS NOTED. PATIENT EASILY AGITATED ANXIOUS, NEEDY,DEMANDING, EASILY GETS IRRITABLE, DENIED SI/HI/AVH AT THIS TIME. SAFETY PRECAUTIONS IN PLACE. WILL CONTINUE TO MONITOR Q15MIN ROUNDS FOR SAFETY.
[2021-10-27 20:42] VITALS: BP 128/70
[2021-10-27] MEDS: TAMSULOSIN 0.4 MG CAP.SR.24H PO SCH (21:05)
[2021-10-27] MEDS: QUETIAPINE FUMARATE 25 MG TABLET PO SCH (21:05)
[2021-10-27] MEDS: CARBIDOPA/LEV CR 50/200 MG 1 UDTAB.SA PO SCH (21:05)
[2021-10-28 08:00] VITALS: BP 139/90
[2021-10-28] MEDS: VENLAFAXINE XR 75 MG CAP.SR.24H PO SCH (08:09)
[2021-10-28] MEDS: CARBIDOPA/LEVODOPA 25/100 MG 1 UDTAB PO SCH ×5 (08:09→17:03)
[2021-10-28] MEDS: DOCUSATE SODIUM 100 MG CAPSULE PO SCH ×2 (08:09→17:03)
[2021-10-28] MEDS: FLUDROCORTISONE 0.1 MG TABLET PO SCH (08:09)
[2021-10-28] MEDS: DONEPEZIL 5 MG TABLET PO SCH (08:09)
[2021-10-28 16:00] VITALS: BP 117/82
--- NOTE | 2021-10-28 19:15 | NUR ---
GPS RN NOTES RECEIVED PATIENT IN BED AWAKE, A/OX3. NO S/SX OF ACUTE DISTRESS NOTED. PATIENT REMAINS DEPRESSED, WITHDRAWN, GUARDED. DENIED SI/HI/AVH AT THIS TIME. VERBALIZATION OF FEELINGS ENCOURAGED. ENCOURAGED TO ATTEND IN GROUP ACTIVITIES. SAFETY PRECAUTIONS MAINTAINED. WILL CONTINUE TO MONITOR Q15MIN ROUNDS FOR SAFETY AND BEHAVIOR.
[2021-10-28 20:00] VITALS: BP 141/80
[2021-10-28] MEDS: QUETIAPINE FUMARATE 25 MG TABLET PO SCH (21:01)
[2021-10-28] MEDS: CARBIDOPA/LEV CR 50/200 MG 1 UDTAB.SA PO SCH (21:01)
[2021-10-28] MEDS: TAMSULOSIN 0.4 MG CAP.SR.24H PO SCH (21:03)
[2021-10-28] MEDS: diphenhydrAMINE HCL 25 MG CAPSULE PO PRN (21:03)
[2021-10-29] MEDS: CARBIDOPA/LEVODOPA 25/100 MG 1 UDTAB PO SCH ×5 (08:17→17:10)
[2021-10-29] MEDS: VENLAFAXINE XR 75 MG CAP.SR.24H PO SCH (08:17)
[2021-10-29] MEDS: DONEPEZIL 5 MG TABLET PO SCH (08:17)
[2021-10-29] MEDS: DOCUSATE SODIUM 100 MG CAPSULE PO SCH ×2 (08:17→16:26)
[2021-10-29] MEDS: FLUDROCORTISONE 0.1 MG TABLET PO SCH (08:17)
--- NOTE | 2021-10-29 11:11 | NUR ---
CRISPIN Family Contact: CRISPIN contacted patient's Daughter Melissa ([phone]) and stated pt will be discharged tomorrow 10/30/2021 to [facility] and notified that Dr. Ceron will be following pt at the facility. SW left a detailed voicemail.
--- NOTE | 2021-10-29 16:30 | NUR ---
RN-CO: TYLENOL 650 MG PO GIVEN FOR "MUSCLE PAIN" 07/12.
--- NOTE | 2021-10-29 19:15 | NUR ---
GPS RN NOTES RECEIVED PATIENT IN BED AWAKE, ALERT AND ORIENTED X3. ABLE TO MAKE NEEDS KNOWN. NO S/SX OF ACUTE DISTRESS NOTED. PATIENT KEEPS MOSTLY TO HIMSELF, COOPERATIVE TO CARE, ANXIOUS AT TIMES. DENIED SI/HI/AVH AT THIS TIME. VERBALIZATION OF FEELINGS ENCOURAGED. ENCOURAGED TO ATTEND IN GROUP ACTIVITIES. SAFETY PRECAUTIONS MAINTAINED. WILL CONTINUE TO MONITOR Q15MIN ROUNDS FOR SAFETY AND BEHAVIOR.
[2021-10-29 20:00] VITALS: BP 153/90
[2021-10-29] MEDS: TAMSULOSIN 0.4 MG CAP.SR.24H PO SCH (21:16)
[2021-10-29] MEDS: CARBIDOPA/LEV CR 50/200 MG 1 UDTAB.SA PO SCH (21:16)
[2021-10-29] MEDS: QUETIAPINE FUMARATE 25 MG TABLET PO SCH (21:16)
[2021-10-29] MEDS: diphenhydrAMINE HCL 25 MG CAPSULE PO PRN (21:17)
--- NOTE | 2021-10-30 07:48 | NUR ---
SW Discharge Note: Patient will be discharged to intermediate facility, [facility], located at [address] [place] [address] ([phone]) . Please arrange ambulance transportation at 1PM. recreation worker spoke with Dot vernon ([phone]), who stated patient will be accepted at the facility today. Patients daughter Melissa ([phone]) who is aware and agreeable of discharge. Patient is alert and oriented x2 and is unable to plan for self-care. Patient denies any suicidal or homicidal ideation. Patient is aware and agreeable with discharge plans. Patient will follow-up at the facility with Dr. Ceron (psychiatrist) [address] [address]; ([phone]) and ([employer]er) Dr. Benitez [address] [facility] [address], [place] [address]; ([phone]). Patient presents with euthymic mood and congruent affect.
[2021-10-30 08:00] VITALS: BP 136/93
[2021-10-30] MEDS: DOCUSATE SODIUM 100 MG CAPSULE PO SCH ×2 (08:02→08:05)
[2021-10-30] MEDS: FLUDROCORTISONE 0.1 MG TABLET PO SCH (08:02)
[2021-10-30] MEDS: CARBIDOPA/LEVODOPA 25/100 MG 1 UDTAB PO SCH ×3 (08:02→12:14)
[2021-10-30] MEDS: VENLAFAXINE XR 75 MG CAP.SR.24H PO SCH (08:02)
[2021-10-30] MEDS: DONEPEZIL 5 MG TABLET PO SCH (08:02)
--- NOTE | 2021-10-30 08:59 | NUR ---
Dr. Ceron gave an order to D/C hold and D/C to [facility] and to follow up with psych and medical doctors. Dr. Ceron gave an order to continue same meds including prn. Pt. without distress, denies suicidal and homicidal. Belongings ready and discharge papers ready. Will continue to monitor for safety.
--- NOTE | 2021-10-30 10:54 | NUR ---
Dr. Lam made aware of the discharge and ordered to continue same meds including prn. Pt. signed the discharge papers and all belongings ready. Addendum: 10/30/21 at 1109 by ANISA SALAS RN Report given to Ari ALMEIDA over the facility. Addendum: 10/30/21 at 1335 by ANISA SALAS RN Pt. signed the discharged papers
--- NOTE | 2021-10-30 13:30 | NUR ---
Pt. left the unit via ambulance and transported via a gurney with belongings. Pt. without distress and no agitation noted. V/S taken: BP 113/76, ID 89, RR 18, oxygen sat 96% and temp. 98.2.
== END 2021-10-30 13:30 | DRG 885 ==
LOC: GPS 10-17 03:43
PROVIDERS: ADMIT Psychiatry & Neurology Psychiatry; ATTEND Nurse Practitioner Acute Care
DX: F33.3 Major depressive disorder, recurrent, severe with psychotic symptoms (principal); F29 Unspecified psychosis not due to a substance or known physiological condition; G20 Parkinson's disease; E87.6 Hypokalemia; K59.00 Constipation, unspecified; N40.0 Benign prostatic hyperplasia without lower urinary tract symptoms; Z20.822 Contact with and (suspected) exposure to COVID-19; Z91.51 Personal history of suicidal behavior
CPT/HCPCS: 36415; 80048-TC; 80061-TC; 80076-TC; 82962-TC; 83735-TC; 84100-TC; 84443-TC; 85025-TC; 87081-TC; 97112-TC; 97116-TC; 97530-TC; Q0163; Q0177